=== PATIENT | female | born 1985 | race Caucasian/White ===

== ENCOUNTER 2017-06-09 05:08 | Emergency (ER) | payer SELFPAY ==
[~2017-06-09] VITALS: Ht 160 cm; Wt 77.1 kg
[~2017-06-09 05:08] MED LIST: NO MEDICATIONS
== END 2017-06-09 06:09 | disposition home or self-care (01) ==
LOC: SED 05:08
DX: K04.7 Periapical abscess without sinus (principal); R56.9 Unspecified convulsions; F17.200 Nicotine dependence, unspecified, uncomplicated
CPT/HCPCS: 96372; 99283

== ENCOUNTER 2017-07-18 07:53 | Emergency (ER) | payer SELFPAY ==
[~2017-07-18] VITALS: Ht 160 cm; Wt 72.6 kg
[2017-07-18] MEDS ORDERED: NO MEDICATIONS (08:02)
== END 2017-07-18 08:50 | disposition home or self-care (01) ==
LOC: SED 07:53
DX: K08.89 Other specified disorders of teeth and supporting structures (principal); F17.200 Nicotine dependence, unspecified, uncomplicated; Z88.0 Allergy status to penicillin
CPT/HCPCS: 99282